=== PATIENT | female | born 1990 | race Asian ===

== ENCOUNTER 2017-08-25 00:24 | Emergency (ER) | payer BC, OTHER ==
[~2017-08-25] VITALS: Ht 162.6 cm; Wt 59.0 kg
[~2017-08-25 00:24] MED LIST: LAMO150T2 PO
[2017-08-25 00:38] VITALS: BP_SYST 102
[2017-08-25 02:53] VITALS: BP_SYST 128
== END 2017-08-25 02:53 | disposition home or self-care (01) ==
LOC: SED 00:24
DX: S09.90XA Unspecified injury of head, initial encounter (principal); G40.909 Epilepsy, unspecified, not intractable, without status epilepticus; R03.0 Elevated blood-pressure reading, without diagnosis of hypertension; W19.XXXA Unspecified fall, initial encounter; Y93.89 Activity, other specified; Y92.89 Other specified places as the place of occurrence of the external cause; Y99.8 Other external cause status
CPT/HCPCS: 70450-TC; 81025; 99284